=== PATIENT | male | born 2000 | race Caucasian/White ===

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

== ENCOUNTER 2022-09-23 13:13 | Emergency (ER) | payer OTHER, SELFPAY ==
--- NOTE | ~2022-09-23 | XR_ITS ---
EXAM: XR foot LT min 3V DATE: 09/23/2022 13:51 HISTORY: FELL DOWN STEPS 09/23/22. GENERALIZED PAIN. . COMPARISON: None available. FINDINGS: Normal mineralization. Oblique minimally displaced fracture of the left fourth distal phal trevon. No lytic or blastic lesion. Joint spaces are maintained. No erosion or periosteal change. Soft tissues within normal limits. IMPRESSION: Oblique minimally displaced fracture of the left fourth distal phalange. Reviewed, dictated and finalized at location K. IMPRESSION: Oblique minimally displaced fracture of the left fourth distal phal trevon.
[2022-09-23 13:23] VITALS: BP 129/62; PULSE 99; RESP 16; TEMP 37.1; O2SAT 99
--- NOTE | 2022-09-23 13:51 | ED.LOWEXIN ---
HPI - Extremity Injury (Lower) General Chief Complaint: Extremity Injury, Lower Stated Complaint: Fall Injury/Left Foot Source: patient and RN notes reviewed History of Present Illness HPI Narrative: 21-year-old male presents to urgent care with complaints of left toe and foot pain. Patient states he was going down a ladder this morning when his toe got caught in the rungs causing him to trip and fall. Patient denies any head injury or LOC. Patient denies any numbness, tingling, neck pain, shortness of breath, or chest pain. Patient has not taken any medication at home. Some parts of this dictation were generated by voice recognition software and may contain typographical and/or grammatical inaccuracies. Related Data Home Medications Medication Instructions Recorded Confirmed albuterol sulfate 90 mcg/actuation inhalation 09/23/22 aerosol inhaler Allergies Allergy/AdvReac Type Severity Reaction Status Date / Time No Known Drug Allergies Allergy Unknown Verified 02/23/21 11:07 Review of Systems Review of Systems: Pertinent positives and pertinent negatives per HPI. PMFSH Comments At the time of my signature, I reviewed and agree with the nursing past medical, surgical, social, and family history. There is no relevant family history pertinent to the patient complaint. Exam Narrative: GENERAL: This is a well-nourished, well-developed patient, in no apparent distress. HEAD: normocephalic, atraumatic. EYES: Sclera clear/white. Vision is grossly intact. EARS: External ears normal, auditory canals clear and without drainage. Hearing grossly intact. NOSE: External nose normal with no obvious nasal discharge, nares without redness, no rhinorrhea. THROAT: Mucous membranes moist, posterior pharynx clear. NECK: Neck supple, non-tender without lymphadenopathy, masses or thyromegaly. CARDIOVASCULAR: Regular rate RESPIRATORY: No respiratory distress GASTROINTESTINAL: Abdomen soft, non-tender, nondistended. Bowel sounds are active. No hepato-splenomegaly, or palpable masses. No guarding. SKIN: warm, intact with no suspicious lesions or rash, good texture and turgor. NEURO: awake, alert, and oriented to person, place and time. There were no obvious focal neurologic abnormalities. EXTREMITIES: Left 4th toe is erythemic and swollen, tender to the touch. Small superficial abrasion noted to left distal toe. Course Course Level of Care: Express Care Visit Vital Signs Vital signs: Vital Signs Temperature 98.8 F 09/23/22 13:23 Pulse Rate 99 09/23/22 13:23 Respiratory Rate 16 09/23/22 13:23 Blood Pressure 129/62 09/23/22 13:23 Pulse Oximetry 99 09/23/22 13:23 Oxygen Delivery Room Air 09/23/22 13:23 Temperature 98.8 F 09/23/22 13:23 Pulse Rate 99 09/23/22 13:23 Respiratory Rate 16 09/23/22 13:23 Blood Pressure 129/62 09/23/22 13:23 Pulse Oximetry 99 09/23/22 13:23 Oxygen Delivery Room Air 09/23/22 13:23 Reviewed MDM - Extremity Injury (Lower) MDM Narrative Medical decision making narrative: Use the RICE method at home. May take ibuprofen and/or Tylenol if needed. If symptoms persist in 1 week after conservative treatment, follow-up with specialist. Podiatrists in the area are Dr. Nelson in [place] and Dr. Gill in [place]. Differential Diagnosis Differential diagnosis: Likely fracture of toe and other (Foot fracture, foot sprain) Imaging Data Radiologist's impression: [place] [address] XRay Report Signed Patient: Rey Boone : 2000 MR#: [id number] Age/Sex: 21 / M Acct:[id number] Loc: [facility]? ? ADM Date: 09/23/22Attending Dr: Ordering Physician: Kim Kaur APRN Date of Service: 09/23/22 Procedure(s): XR foot LT min 3V Accession Number(s): [id number] cc: Kim Kaur APRN; Em Mendez MD~ EXAM:? XR foot LT min 3V DATE: 09/23/2022 13:51 HISTORY: FELL
== END 2022-09-23 14:18 | disposition home or self-care (01) ==
PROVIDERS: Emergency Provider Nurse Practitioner Family; PCP Pediatrics
DX: S92.532A Displaced fracture of distal phalanx of left lesser toe(s), initial encounter for closed fracture (principal); W11.XXXA Fall on and from ladder, initial encounter
CPT/HCPCS: 73630; 99213; G0463